=== PATIENT | female | born 1930 | race Caucasian/White ===

== ENCOUNTER 2017-06-20 08:10 | Observation (INO) ==
[2017-06-20 09:24] LABS: Basophils % 0.4 % (0.0-0.8); Eosinophils # 0.2 10*3/uL (0.0-0.87); Hematocrit 28.8 VOL% (35.7-47.0); Immature Granulocytes % 0.4 %; Immature Granulocytes Absolute 0.02 #; Lymphocytes % 20.2 % (21.3-54.2); Mean Corpuscular HGB Conc 34.7 GM/DL (32-36); Mean Corpuscular Hemoglobin 33 PG (27-34); Mean Platelet Volume 10.2 FL (9.6-12.0); Monocytes # 0.4 10*3/uL (0.11-0.8); Monocytes % 7.4 % (1.7-12.7); Neutrophils # 3.2 10*3/uL (1.4-7.4); Neutrophils % 66.6 % (38.7-73.9); Platelet Count 184 T/CUMM (130-400); White Blood Count 4.8 T/CUMM (4-12)
[2017-06-20 09:56] LABS: Albumin 3.1 G/DL (3.4-5.0); Bilirubin,Total 0.5 MG/DL (0.2-1.0); Calcium 7.8 MG/DL (8.5-10.1); Osmolality,Calculated 265.2 MOS/KG (273-304); Potassium 3.1 MMOL/L (3.5-5.1)
[2017-06-20] MEDS ORDERED: ONDANSETRON 4 MG/2 ML VIAL IV PRN (13:10)
[2017-06-20] MEDS ORDERED: DOCUSATE SODIUM 100 MG CAPSULE PO PRN (13:10)
[2017-06-20] MEDS: SODIUM CHLORIDE 0.9% 1,000 ML IV SCH (13:45)
[2017-06-20] MEDS ORDERED: BENZONATATE 100 MG CAPSULE PO PRN (15:45)
[2017-06-20] MEDS ORDERED: BUDESONIDE 0.5 MG/2 ML NEB RESP TX PRN (15:45)
[2017-06-20] MEDS ORDERED: ALBUTEROL/IPRATROPIUM 3 ML NEB RESP TX PRN (15:45)
[2017-06-20] MEDS: ZAFIRLUKAST 20 MG TABLET PO SCH (18:00)
[2017-06-20] MEDS ORDERED: MAGNESIUM CHLORIDE 64 MG TABLET PO SCH (19:00)
[2017-06-20] MEDS ORDERED: ACETAMINOPHEN 325 MG TABLET PO PRN (19:14)
[2017-06-20] MEDS: MAGNESIUM CHLORIDE 64 MG TABLET PO SCH (20:09)
[2017-06-20] MEDS: MECLIZINE 25 MG TABLET PO SCH (20:10)
[2017-06-21 05:53] LABS: Basophils % 0.2 % (0.0-0.8); Eosinophils # 0.3 10*3/uL (0.0-0.87); Eosinophils % 8.1 % (0.00-10.9); Hematocrit 26.4 VOL% (35.7-47.0); Hemoglobin 9.2 GM/DL (12.0-16.0); Immature Granulocytes % 0.5 %; Immature Granulocytes Absolute 0.02 #; Lymphocytes # 1.2 10*3/uL (1.4-4.0); Lymphocytes % 28.1 % (21.3-54.2); Mean Corpuscular HGB Conc 34.8 GM/DL (32-36); Mean Corpuscular Hemoglobin 33 PG (27-34); Mean Platelet Volume 10.7 FL (9.6-12.0); Monocytes # 0.4 10*3/uL (0.11-0.8); Monocytes % 9.3 % (1.7-12.7); Neutrophils # 2.2 10*3/uL (1.4-7.4); Neutrophils % 53.8 % (38.7-73.9); Platelet Count 170 T/CUMM (130-400); Red Blood Count 2.81 MC/CUMM (3.8-5.5); Red Cell Distribution Width 13.4 % (9.3-17.3); White Blood Count 4.1 T/CUMM (4-12)
[2017-06-21 06:02] LABS: Calcium 7.4 MG/DL (8.5-10.1); Osmolality,Calculated 261.5 MOS/KG (273-304)
[2017-06-21 06:09] LABS: Potassium 2.4 MMOL/L (3.5-5.1)
[2017-06-21] MEDS: POTASSIUM CHLORIDE 20 MEQ TABLET PO PRN ×3 (06:46→15:05)
[2017-06-21] MEDS: SODIUM CHLORIDE 0.9% 1,000 ML IV SCH ×2 (06:46→11:22)
[2017-06-21] MEDS: ZAFIRLUKAST 20 MG TABLET PO SCH ×3 (06:46→15:36)
[2017-06-21] MEDS ORDERED: LEVOTHYROXINE 50 MCG TABLET PO SCH (07:00)
[2017-06-21] MEDS: MECLIZINE 25 MG TABLET PO SCH (08:39)
[2017-06-21] MEDS ORDERED: RALOXIFENE 60 MG TABLET PO SCH (09:00)
[2017-06-21] MEDS ORDERED: NEBIVOLOL 5 MG TABLET PO SCH (09:00)
[2017-06-21] MEDS ORDERED: PANTOPRAZOLE 40 MG TABLET PO SCH (09:00)
[2017-06-21] MEDS ORDERED: NON-FORMULARY MEDICATION (Esomeprazole Magnesium [Nexium] 40 MG) PO SCH (09:00)
[2017-06-21] MEDS ORDERED: MAGNESIUM CHLORIDE 64 MG TABLET PO SCH (09:00)
[2017-06-21] MEDS ORDERED: IRON (CARBONYL)/VIT C/B12/FA TABLET PO SCH (09:00)
[2017-06-21] MEDS ORDERED: POTASSIUM CHLORIDE 20 MEQ TABLET PO ONE (10:34)
[2017-06-21 11:08] LABS: Free T4 (Free Thyroxine) 1.02 NG/DL (0.76-1.46); Thyroid Stimulating Hormone 1.12 uIU/ml (0.358-3.74)
[2017-06-21] MEDS ORDERED: MAGNESIUM SULF RIDER 2 GM in PREMIX 1 EACH IV PRN (14:01)
[2017-06-21] MEDS ORDERED: MAGNESIUM SULF RIDER 4 GM in PREMIX 1 EACH IV PRN (14:01)
[2017-06-21 15:13] VITALS: BP 148/76
[2017-06-21] MEDS: MAGNESIUM CHLORIDE 64 MG TABLET PO SCH (17:29)
[2017-06-26] MEDS ORDERED: ERGOCALCIFEROL 50,000 UNIT CAPSULE PO SCH (13:57)
== END 2017-06-21 18:15 | disposition home or self-care (01) ==
LOC: N.EDINP 08:10 → N.ED 08:10 → N.EDINP 15:35 → N.5E 15:44
PROVIDERS: ADMIT Hospitalist; ATTEND Hospitalist